=== PATIENT | male | born 1950 | race Caucasian/White ===

== ENCOUNTER 2019-03-29 12:50 | Emergency (ER) | payer OTHER ==
[~2019-03-29] VITALS: Ht 182.9 cm; Wt 106.6 kg
[2019-03-29 13:18] LABS: ABSOLUTE NEUTROPHILS 5.9 thou/uL (1.4-8.2); BASOPHILS 0.5 % (0.0-2.0); EOSINOPHILS 1.6 % (0.0-3.0); HEMATOCRIT 40.9 % (42.0-52.0); HEMOGLOBIN 13.6 gm/dL (14.0-18.0); LYMPHOCYTES 20.5 % (24.0-44.0); MCH 29.3 pg (26.0-34.0); MCHC 33.3 g/dL (28.0-37.0); MCV 88.1 fL (80.0-100.0); MONOCYTES 7.9 % (1.0-8.0); PLATELET COUNT 206 thou/uL (150-400); POLYS 69.5 % (36.0-66.0); RBC 4.64 mil/uL (4.50-6.00); RDW 14.2 % (10.5-14.5); WBC 8.5 thou/uL (4.0-11.0)
[2019-03-29 13:25] LABS: ANION GAP 8 mmol/L (7-16); BUN 17 mg/dL (7-18); CALCIUM 9.7 mg/dL (8.5-10.1); CHLORIDE 101 mmol/L (98-107); CO2 31 mmol/L (21-32); CREATININE 1.6 mg/dL (0.7-1.3); GLUCOSE 171 mg/dL (74-106); SODIUM 140 mmol/L (136-145)
[2019-03-29 13:34] LABS: SGOT 19 U/L (15-37); SGPT 21 U/L (30-65); TOTAL BILIRUBIN 0.4 mg/dL (<0.1-1.0); TOTAL PROTEIN 7.5 g/dL (6.4-8.2); TROPONIN-I <0.06 ng/mL (<0.06)
[2019-03-29 15:24] LABS: URINE BILIRUBIN NEGATIVE (Negative); URINE BLOOD TRACE (Negative); URINE CLARITY CLEAR; URINE COLOR YELLOW; URINE GLUCOSE-RANDOM* NEGATIVE (Negative); URINE KETONES 1+ (Negative); URINE LEUKOCYTES-REFLEX NEGATIVE (Negative); URINE NITRITE-REFLEX NEGATIVE (Negative); URINE PROTEIN (DIPSTICK) NEGATIVE (Negative); URINE UROBILINOGEN 0.2 E.U./dl (0.2-1.0)
[2019-03-29] MEDS ORDERED: AUGMENTIN 875-1 EACH PO (15:34)
[2019-03-29] MEDS ORDERED: PREDNISONE 20 M20 MG PO (15:34)
[2019-03-29 15:43] VITALS: BP 153/77
--- NOTE | 2019-03-31 13:20 | EKG ---
[place] [address] [facility] [place] [employer] [place] [address] ELECTROCARDIOGRAM REPORT Name: NHAN WIGGINS Room #: DEP Francisco Javier#: [id number] Admission: 03/29/19 Attend Phys: Discharge: 03/29/19 Date of : 54 Report #: [id number] THIS REPORT FOR: //name// [facility] ED Test Date: 2019-03-29 Test Time: 13:17:08 Pat Name: NHAN WIGGINS Department: Room: Gender: M [employer]ger: : 1950 Requested By: Sandra Sadler Order Number: [id number] MD: Marquise Huerta Measurements Intervals [place] Rate: 85 P: 71 IA: 170 QRS: 36 QRSD: 133 T: 49 QT: 385 QTc: 458 Interpretive Statements Sinus rhythm IVCD, consider atypical RBBB No previous ECG available for comparison Electronically Signed On 03-31-2019 13:20:35 CDT by Marquise Huerta [email or web address] <ELECTRONICALLY SIGNED> By: Marquise Huerta MD, [facility] 03/31/19 1320 1317 1317 Marquise Huerta MD, FACC /EPI
== END 2019-03-29 16:30 | disposition home or self-care (01) ==
LOC: ER 12:50
PROVIDERS: Nurse Practitioner Family
DX: J32.9 Chronic sinusitis, unspecified (principal); R42 Dizziness and giddiness; I10 Essential (primary) hypertension; Z90.49 Acquired absence of other specified parts of digestive tract; Z86.73 Personal history of transient ischemic attack (TIA), and cerebral infarction without residual deficits